=== PATIENT | male | born 1985 | race African-American/Black ===

== ENCOUNTER 2018-04-04 16:33 | Emergency (ER) | payer SELFPAY ==
[~2018-04-04] VITALS: Ht 177.8 cm; Wt 76.8 kg
[2018-04-04 16:50] VITALS: BP 115/73
[2018-04-04] MEDS ORDERED: IBUPROFEN 800 MG TABLET PO ONE (17:00)
[2018-04-04] MEDS ORDERED: IBUPROFEN 200 MG TABLET ONE (17:07)
[2018-04-04 17:29] LABS: RAPID INFLUENZA A Negative (Negative); RAPID INFLUENZA B Negative (Negative)
== END 2018-04-04 17:49 | disposition home or self-care (01) ==
LOC: ED 17:43
DX: J02.8 Acute pharyngitis due to other specified organisms (principal); B34.9 Viral infection, unspecified
CPT/HCPCS: 71046; 87081; 87147; 87400; 87880; 99284